=== PATIENT | female | born 1985 | race Caucasian/White ===

== ENCOUNTER 2016-11-10 13:42 | Emergency (ER) | payer OTHER ==
[~2016-11-10] VITALS: Ht 149.9 cm; Wt 52.3 kg
[~2016-11-10 13:42] MED LIST: ALBU1AER9 INH; BUTA1TAB70 PO; CETI10TA84 PO; SYMIN/8045 INH
[2016-11-10 13:46] VITALS: TEMP 36.9; Ht 149.9 cm; Wt 52.3 kg
[2016-11-10] MEDS ORDERED: DiphenhydrAMINE HCL 50 MG/ML VIAL IV STA (14:19)
[2016-11-10] MEDS ORDERED: KETOROLAC TROMETHAMINE 30 MG/ML VIAL IV STA (14:19)
[2016-11-10] MEDS ORDERED: PROCHLORPERAZINE INJ 5 MG in SYRINGE 4 ML IV STA (14:19)
[2016-11-10] MEDS ORDERED: PROCHLORPERAZINE 5 MG/ML 2 ML VIAL ONE (14:23)
[2016-11-10] MEDS ORDERED: SODIUM CHLORIDE 0.9% 1000ML 1,000 ML IV ONE (14:30)
--- NOTE | 2016-11-10 14:31 | EMERGENCY ROOM VISIT NOTE ---
History First contact with patient: 13:49 Chief Complaint: HEADACHE Stated Complaint: LEI, NUMBNESS FROM FACE DOWN RIGHT SIDE History of Present Illness The patient is a 31 year old female who presents to the Emergency Room with complaints of right facial, hand and foot tingling. She has a history of migraines She was at [facility] working when she had a sudden onset headache. The headache was quite typical of her usual migraine, described as a 6/10 throbbing pain in the back of her neck in the back of the neck and forehead. In addition to her headache, within 10 minutes of onset she developed blurred vision. She notes the visual disturbance is in her right eye where she has blurred vision in her temporal field only. She also says that she was seeing streaks of yellow light when at [facility], which has improved since coming here. She also notes that she had numbness/tingling in her right upper and lower extremity. She continues to having tingling in her hands and feet. She denies any limb weakness. She has not had any aphasias or dysphasias. She denies balance issues, vertigo, tinnitus or hearing changes. She has not had any facial weakness. She notes that this happened 5 years ago whereby she was evaluated. The difference at that time was that her symptoms were on the left. She was seen by Neurology at that time, who felt that her symptoms were related to migraine background. Imaging at that time, including CT and MRI were negative. She has Fioricet PRN, which she has not needed for a long time. She did not take it with the onset of her symptoms this morning. She denies fevers, chills or nightsweats. Review of Systems A 10 point review of systems was negative unless stated above. 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[employer]) Current/Historical Medications Scheduled PRN Albuterol Sulfate (Proair Respiclick), 1-2 PUFFS INH Q4 PRN for SOB/Wheezing Budesonide/Formoterol Fumarate (Symbicort 80/4.5 Inhaler), 2 PUFFS INH BID PRN for SOB/Wheezing Czclietynn-Qeitclwbikwet-Cxryy (Esgic), 1-2 TABS PO Q4H PRN for Headache Allergies Coded Allergies: Verapamil (Verified Allergy, Unknown, Swelling and rash, 11/10/16) Reported by PT Physical Exam Vital Signs Date Time Temp Pulse Resp B/P Pulse Ox O2 Delivery O2 Flow Rate FiO2 11/10/16 13:46 36.9 85 18 147/104 100 Room Air Pain Rating (0-10): 6 Physical Exam Constitutional: Vital signs as above were reviewed. Eyes: Pupils equal, round, and reactive to light. Extraocular muscles are intact. No proptosis. No photophobia. ENT: Mucous membranes are moist. Oropharynx is clear. No sinus tenderness. TMs are clear bilaterally. Cardiovascular: Heart with a regular rate and rhythm. Pulses are palpable and symmetric in all 4 extremities. No pedal edema appreciated. Respiratory: Lungs clear to auscultation bilaterally. No wheezes, rales, or rhonchi appreciated. No accessory muscle use. No retractions. No increased work of breathing. GI: Abdomen soft, nontender, nondistended. Normal active bowel sounds. No abdominal hernias appreciated. No rebound. No guarding. : No CVA tenderness appreciated. Musculoskeletal: No midline cervical or vertebral tenderness. No gross deformities. No bony tenderness. No calf swelling or tenderness. Integumentary: Warm, dry, no rashes appreciated. Neurological: Patient awake, alert, and oriented x 3. Motor 5 out of 5 strength bilateral upper and lower extremities. PERRL, normal EOMI, visual olivera intact; notes blurriness in temporal view of right eye but can see finger in field of view Hearing grossly normal No facial weakness; notes slightly reduced sensation to right side of face Normal muscles of mastication, normal swallow, uvula is in the midline, tongue is in the midline 5/5 strength in upper extremities; notes slight diminished sensation to the thenar eminence and index finger on the right; normal coordination 5/5 strength in lower extremities: notes slight diminished sensation to medial aspect of foot; normal coordination; patellar reflexes intact bilaterally Lymph: No cervical lymphadenopathy appreciated. Medical Decision & Procedures Medications Administered Medications (Trade) Dose Ordered Sig/Bassem Route Start Time Stop Time Status Last Admin Dose Admin Sodium Chloride (Nss 1000ml) 1,000 ml @ 999 mls/hr Q1H1M ONCE IV 11/10/16 14:30 11/10/16 15:30 DC 11/10/16 14:32 999 MLS/HR Ketorolac Tromethamine (Toradol Inj) 30 mg NOW STAT IV 11/10/16 14:19 11/10/16 14:21 DC 11/10/16 14:28 30 MG Diphenhydramine HCl 50 mg 50 mg NOW STAT IV 11/10/16 14:19 11/10/16 14:21 DC 11/10/16 14:28 50 MG Prochlorperazine Edisylate/Syringe (Compazine Inj/ Syringe) 5 ml @ 5 mls/min NOW STAT IV 11/10/16 14:19 11/10/16 14:21 DC 11/10/16 14:28 5 MLS/MIN ED Course 14:00 - Patient seen and evaluated 14:20 - Case discussed with Dr. Freddie Quan Orders placed for: 30 mg Toradol IV one; 50 mg Benadryl IV one; 5 mg Compazine IV one Order for 1 L NSS bolus 16:00 - Patient re-evaluated Patient feeling much better Discussed with patient with symptom improvement and improved headache, patient can be discharged home to continue recovery there; patient in agreement 16:10 - Discharge paperwork completed Patient discharged in stable condition. Medical Decision Patient presents with Migraine with neurological symptoms in the form of right sided facial and upper and lower extremity paresthesia. History was obtained, physical examination was performed and EMR was reviewed. Differential diagnosis to consider include tension headache, cluster headache, migraine headache, multiple sclerosis, CVA, TIA or intracranial hemorrhage. This was noted to have happened a few years ago on her opposite side. She was seen by neurology at that point, who felt it was migraine-related. Evaluating her in the ED, she had a grossly intact neurological examination. Her only symptoms were tingling in the fingers toes and mild numbness in the right side of her face. However, her symptoms improved spontaneously. We did not have an indication at this visit to perform additional imaging, especially given spontaneous resolution of mild symptoms. Our impression is that this is likely, again, a migraine variant. After treatment with Toradol, Compazine and Benadryl, she noted to feel significantly better. At this point, we felt she was stable to continue her recovery at home. She was advised to resume Fioricet PRN and see Neurology if migraine begin to recur more frequently. Otherwise, she was advised to see her PCP in 3-5 to ensure improvement in her symptoms. She was well at discharged and departed in stable condition. Impression Primary Impression: Migraine Departure Information Dispostion Home / Self-Care Condition GOOD Referrals Lester Dick M.D. (PCP) Patient Instructions My [facility] Additional Instructions You came to the ED for headache with symptoms of right-sided numbess and tingling. You noted that this happened to many years back and they resolved on their own. Hearing your story today in the ED, your symptoms are suggestive of a similar episode you had several years ago. As such we did not see the need to re-image your brain. We did a complete neurological examination on you which was completely normal except for some residual tingling which improved during your ED stay. Our impression is that your symptoms were a variant of your migraine and extremely unlikely to be a stroke. We treated you with a combination of Toradol, Benadryl and Compazine, a common combination used to acutely treat headache. Fortunately, this was very helpful for you. As you go home, if your symptoms return, you can try to take Fioricet as previously prescribed by your neurologist. If your headaches start to recur more frequently, it would be worthwhile for you to have a follow-up visit with your neurologist as it has been a long time since. Here are some additional instructions for your headaches: DO NOT drive, drink alcohol, operate machinery, or perform dangerous activities today. You were given medications in the ER that can affect your ability to safely function or operate a vehicle. Rest today in a quiet, peaceful, dark environment and get a full 8-10 hrs of sleep tonight. Avoid loud noises, smoke/smoking, alcohol, bright lights, stress, or physical exertion today to minimize the chance the headache may return. Continue current medications. Ibuprofen(Motrin, Advil) may be used for fever or pain. Use 600mg every six hours as needed. Take with food. Avoid using more than 2400mg in a 24 hour period. Do not use 2400mg per day for more than three consecutive days without physician direction. Prolonged inappropriate use can lead to stomach upset or ulcers. This is available over the counter and typically comes in 200mg tablets. (AND/OR) Acetaminophen(Tylenol) may be used for fever or pain. Use 1000mg every eight hours as needed. Avoid using more than 3000mg in a 24 hour period. This is available over the counter. Read all the package inserts or medication information paperwork provided. If you have any questions or concerns call your primary provider, pharmacist or the ER for assistance. Return to the ER for passing out, worsening headache, vision problems, neck stiffness/pain, fevers, vomiting, feeling lethargic, worsening of your condition, or as needed. Follow up with your primary physician in 2-3 days for a recheck of your current condition. It was a pleasure to be involved in your care and we wish you all the best.
[2016-11-10] MEDS ORDERED: ALBU18002 INH (15:05)
[2016-11-10 16:31] VITALS: BP 115/58; PULSE 76; O2SAT 98
--- NOTE | 2016-11-10 19:54 | EMERGENCY ROOM VISIT NOTE ---
ED Visit Note First contact with patient: 13:51 Resident Physician Supervision Note: Dr. Lindsya was resident physician during care of patient. I separately evaluated patient and did history and exam. I discussed the case with the resident and generally agree with the findings and plan. 31 yr old female arrives with headache and paresthesias. Multiple previous MRIs with previous Migraines and known diagnosis of complex migraines which she notes this is similar to. No neuro deficits though does note paresthesias which occurred with previous migraine. She does not have meningitis by examination nor does her history go with sah, dissection, nor other acute intracranial pathology. She is stable, looks well and not septic. With feeling better with above seems reasonable to discharge to home. Diagnosis: Headache/Complex Migraine Documented By: Kelechi Quan MD
== END 2016-11-10 16:54 | disposition home or self-care (01) ==
LOC: C.EDB 13:44
DX: G43.909 Migraine, unspecified, not intractable, without status migrainosus (principal); J45.909 Unspecified asthma, uncomplicated; Z90.49 Acquired absence of other specified parts of digestive tract; Z90.710 Acquired absence of both cervix and uterus; Z82.49 Family history of ischemic heart disease and other diseases of the circulatory system; Z82.0 Family history of epilepsy and other diseases of the nervous system

== ENCOUNTER 2020-04-25 07:14 | Inpatient (IN) ==
--- NOTE | 2020-04-25 07:48 | Emergency Department Note ---
History of Present Illness General Chief complaint: Cardiac Assessment Stated complaint: CHEST PAIN,LIGHTHEADED,HOT/SWEATS,SOB Time Seen by Provider: 04/25/20 07:22 History of Present Illness Maximum Pain Intensity: 7 35-year-old female who presents to the emergency department with complaint of left-sided chest discomfort, shortness of breath, sweatiness, hot flashes and lightheadedness. The patient reports that her symptoms started yesterday afternoon around 4:30 PM. She reports that the pain is intermittent in nature, lasting approximately 30 to 40 seconds at a time, and now becoming more constant. She denies any alleviating or aggravating factors for the pain. Patient reports that she is also had intermittent sharp stabbing pains in the left lower ribs that has been worked up by her PCP without any definitive etiologies for the pain. The patient reports a prior history of cardiomyopathy with QT prolongation. The patient is currently under the management of Dr. Galdamez. Her last echo was approximately 4 to [address] Galdamez had recommended a cardiac catheterization [id number]. The patient currently takes metoprolol 25 mg at bedtime as she reportedly has a variable heart rate. The patient reports a strong family history of cardiomyopathy, CHF and coronary artery disease. The patient reports that she is otherwise healthy. She denies hyperlipidemia or hypertension. She has a strong family history of thyroid disease, but has not had her thyroid checked in quite a while. The patient reports that her current pain radiates to the left shoulder and neck. He denies any pain radiating into the back or abdomen. The patient currently ra ayan her discomfort a 7 out of 10. Home Medications Home Medications Medication Instructions Recorded Confirmed Type albuterol sulfate 2 puff INHALATION Q6H PRN 04/25/20 04/25/20 History dicyclomine 10 mg PO TID PRN 04/25/20 04/25/20 History metoprolol succinate 25 mg PO HS 04/25/20 04/25/20 History Allergies Allergy/AdvReac Type Severity Reaction Status Date / Time verapamil Allergy Mild Swelling Verified 04/25/20 07:56 and rash Past Med/Surg History Medical History Abdominal pain Asthma inhaler prn Cardiomyopathy Dark stools GERD (gastroesophageal reflux disease) Hiatal hernia History of anesthesia reaction pt states that when she had an EGD in 2010 at the [facility] outpatient endo units, she "had an asthma attack while she was under anesthesia". Pt states she did not have any issues after the procedure was over and pt states that her asthma has greatly improved in the last 8 years since procedure was done. Migraine QT prolongation Surgical History History of section History of cholecystectomy History of esophagogastroduodenoscopy (EGD) History of exploratory laparotomy was having a lot of uterine cramping History of hysterectomy enlarged uterus removed at age of 27 History of wisdom tooth extraction Family History Grandfather (Maternal) Coronary heart disease Grandmother (Maternal) Coronary heart disease Brother Cardiomyopathy Age 38, hypertrophic cardiomyopathy Other Cancer No family history of adverse response to anesthesia Social History Preferred Language: Georgian Communication Ability: Effective Instrument And Controls Technician Required: No Beliefs That Will Affect Care: None Current Living Situation: Spouse and Family Current Living Situation Comment: Lives with and kids Other Information That Helps Us Care for You: No Feels Safe at Home: Yes Safety Concerns: Feels Safe At This Time Smoking Status: Never smoker Second Hand Exposure: No ; Hx Alcohol Use: Yes (2-3 beers daily) Alcohol type: beer Hx Substance Use: No Review of Systems 10 system review was performed and was negative except for pertinent positives and negatives as indicated in history of present illness Physical Exam Vital Signs Vital Signs - 24 hr 04/25/20 07:18 04/25/20 08:38 04/25/20 09:30 Temperature 36.8 C Temperature Source Oral Pulse Rate 74 Pulse Rate [Apical] 67 69 Respiratory Rate 18 16 16 Respiratory Effort / Characteristics Non-Labored Respiratory Depth Normal Blood Pressure 139/84 Blood Pressure [Right Arm] 118/80 119/89 Blood Pressure Mean 102 Blood Pressure Mean [Right Arm] 92 99 Pulse Oximetry 98 97 Oxygen Delivery Method Room Air Room Air Sepsis Recent Fever Within 48 Hours No Sepsis New/Unexplained Change in Mental Status No Sepsis Action Taken by Nursing No Action Required 04/25/20 10:30 Temperature Temperature Source Pulse Rate Pulse Rate [Apical] 66 Respiratory Rate 16 Respiratory Effort / Characteristics Respiratory Depth Blood Pressure Blood Pressure [Right Arm] 149/97 H Blood Pressure Mean Blood Pressure Mean [Right Arm] 114 Pulse Oximetry Oxygen Delivery Method Sepsis Recent Fever Within 48 Hours Sepsis New/Unexplained Change in Mental Status Sepsis Action Taken by Nursing CONSTITUTIONAL: Healthy and well nourished. Patient does not appear in any acute distress. HEENT: Normocephalic, atraumatic. No scleral icterus or conjunctival injection/pallor. No facial edema. NECK: Full active range of motion without discomfort. LYMPHATICS: No cervical chain adenopathy. RESPIRATORY: Clear to auscultation bilaterally with no wheezing, crackles, rhonchi or stridor. Deep breathing does not worsen discomfort. CARDIOVASCULAR: Regular rate and rhythm with no murmurs, rubs or gallops. GASTROINTESTINAL: Bowel sounds present in all quadrants. Soft and nontender to palpation without hepatosplenomegaly or epigastric tenderness to palpation. Negative CVA tenderness. MUSCULOSKELETAL: Patient has mild tenderness to palpation across the left anterior chest wall. No worsening pain with range of motion of the left shoulder. INTEGUMENTARY: No rash or other significant dermatologic conditions noted. HEMATOLOGIC: No ecchymosis or petechiae. PSYCHIATRIC: Positive affect. NEUROLOGIC: No focal neurologic deficits noted. Course Course Patient history and physical exam were performed. Nurse's notes were reviewed. Vital signs were reviewed to show a mildly elevated blood pressure 139/84, otherwise he is not tachycardic or hypoxic. IV access was established, and labs were drawn. The patient initially refused any analgesics or antiemetics. Review of labs did not show any significant abnormalities, including CBC, CMP, lipase and TSH. Urinalysis was also unremarkable. Troponin and d-dimer were also normal. Portable chest x-ray was normal. Initial ECG showed small is chemic changes in leads V1 through 3. The patient had persistent pain, rating her discomfort a 7 out of 10. At this point, the case was discussed with Dr. Mena, ED attending physician who agrees with cardiology consultation. I did attempt to get a hold of Dr. Galdamez, however was unsuccessful. I then discussed the case with Dr. Shepherd, allergist immunologist on-call, who reviewed patient history and ED findings, and recommended another repeat troponin and ECG. If these are normal, he recommended a stress echo be performed. The patient second ECG and troponin were in fact normal. The patient was then sent for a stress echo, which the patient failed. Dr. Shepherd did contact me via telephone, and indicated that he is recommending a heart catheterization as soon as their procedure table is available. He has requested hospitalist admission. The case was then discussed with the [facility] hospitalist service. Please see their dictations for further treatment and final disposition. Administered Medications Discontinued Medications Aspirin (Aspirin) 324 mg PO NOW STA Stop: 04/25/20 13:41 Last Admin: 04/25/20 13:57 Dose: 324 mg Documented by: [id number] Aspirin (Aspirin) Confirm Administered Dose 324 mg .ROUTE .STK-MED ONE Stop: 04/25/20 13:48 Last Admin: 04/25/20 14:12 Dose: Not Given Documented by: [id number] Fentanyl Citrate (Fentanyl Citrate) Confirm Administered Dose 100 mcg .ROUTE .STK-MED ONE Stop: 04/25/20 15:41 Last Increment: 04/25/20 16:07 Dose: 12.5 mcg Documented by: [id number] Heparin Sodium (Porcine) (Heparin Iv Bolus (Match Up Worker Use Only)) Confirm Administ ered Dose 10,000 units .ROUTE .STK-MED ONE Stop: 04/25/20 15:43 Last Admin: 04/25/20 16:07 Dose: 5,000 units Documented by: [id number] Heparin Sodium/Sodium Chloride (Heparin/Nss 1000 Unit/500ml Flush Bag) Confirm Administered Dose 3,000 units IV .STK-MED ONE Stop: 04/25/20 15:41 Last Admin: 04/25/20 16:07 Dose: 3,000 units Documented by: [id number] Ketorolac Tromethamine (Toradol) 30 mg IV NOW STA Stop: 04/25/20 10:13 Last Admin: 04/25/20 10:32 Dose: 30 mg Documented by: [id number] Midazolam HCl (Versed) Confirm Administered Dose 2 mg .ROUTE .STK-MED ONE Stop: 04/25/20 15:41 Last Admin: 04/25/20 16:07 Dose: 2 mg Documented by: [id number] Nitroglycerin/Dextrose (Nitroglycerin/D5w 100 Mcg/Ml 20ml Syringe) Confirm Administered Dose 2,000 mcg .ROUTE .STK-MED ONE Stop: 04/25/20 15:41 Last Admin: 04/25/20 16:07 Dose: 2,000 mcg Documented by: [id number] Medical Decision Making Medical Records Attestation: I reviewed the patient's medical records. Home Medications Current Medication List: was personally reviewed by me Laboratory Data Attestation: I reviewed the patient's lab results. Result diagrams: 04/25/20 07:27 04/25/20 07:27 Lab Results 04/25/20 04/25/20 04/25/20 Range/Units 07:27 07: 07:27 WBC 8.65 (4.8-10.8) K/uL RBC 4.36 (4.2-5.4) M/uL Hgb 13.8 (12.0-16.0) g/dL Hct 41.1 (37-47) % MCV 94.3 (80-100) fL MCH 31.7 (25-34) pg MCHC 33.6 (32-36) g/dL RDW Std Deviation 46.6 H (36.4-46.3) fL RDW Coeff of Ricky 13.6 (11.5-14.5) % Plt Count 291 (130-400) K/uL MPV 9.9 (7.4-10.4) fL Immature Gran % (Auto) 0.5 % Neut % (Auto) 60.7 % Lymph % (Auto) 29.2 % [place] % (Auto) 6.0 % Eos % (Auto) 2.9 % Baso % (Auto) 0.7 % Neut # (Auto) 5.25 (1.4-6.5) K/uL Lymph # (Auto) 2.53 (1.2-3.4) K/uL [place] # (Auto) 0.52 (0.11-0.59) K/uL Eos # (Auto) 0.25 (0-0.5) K/uL Baso # (Auto) 0.06 (0-0.2) K/uL Immature Gran # (Auto) 0.04 H (0.00-0.02) K/uL PT 10.1 (9.0-12.0) Seconds INR 1.0 (0.9-1.1) APTT 26.9 (21.0-31.0) Seconds PTT Ratio 1.0 D-Dimer 240 (0-500) ug/L FEU Sodium 138 (136-145) mmol/L Potassium 4.2 (3.5-5.1) mmol/L Chloride 107 (98-107) mmol/L Carbon Dioxide 27 (21-32) mmol/L Anion Gap 5.0 (3-11) BUN 9 (7-18) mg/dl Creatinine 0.89 (0.6-1.2) mg/dl Est Cr Clr Drug Dosing 73.1 ml/min Est GFR ( Amer) 96.0 Est GFR (Non-Af Amer) 82.8 BUN/Creatinine Ratio 9.8 L (10-20) Glucose 93 (70-99) mg/dl Calcium 8.2 L (8.5-10.1) mg/dl Total Bilirubin 0.8 (0.2-1) mg/dl AST 16 (15-37) U/L ALT 24 (12-78) U/L Alkaline Phosphatase 48 (45-117) U/L Total Creatine Kinase 180 (26-192) U/L CK-MB (CK-2) < 1.0 (0.5-3.6) ng/ml CK/CKMB % Calc TNP Troponin I < 0.015 (0-0.045) ng/ml Total Protein 7.4 (6.4-8.2) gm/dl Albumin 3.6 (3.4-5.0) gm/dl Globulin 3.8 (2.5-4.0) gm/dl Albumin/Globulin Ratio 1.0 (0.9-2) Lipase 144 (73-393) U/L TSH 2.190 (0.300-4.500) uIu/ml Urine Color Urine Appearance (Clear) Urine pH (4.5-7.5) Ur Specific [place] (1.000-1.030) Urine Protein (Negative) Urine Glucose (UA) (Negative) Urine Ketones (Negative) Urine Blood (Negative) Urine Nitrite (Negative) Urine Bilirubin (Negative) Urine Urobilinogen (Negative) Ur Leukocyte Esterase (Negative) Urine Opiates Screen (Neg) Ur Methadone, Qual (Neg) Urine Barbiturates (Neg) Ur Phencyclidine (PCP) (Neg) U Amphetamin/Meth Scrn (Neg) MDMA (Ecstasy) Screen (Neg) U Benzodiazepines Scrn (Neg) Ur Cocaine Metabolite (Neg) U Marijuana (THC) Screen (Neg) 04/25/20 04/25/20 04/25/20 Range/Units 08:30 08:30 10:30 WBC (4.8-10.8) K/uL RBC (4.2-5.4) M/uL Hgb (12.0-16.0) g/dL Hct (37-47) % MCV (80-100) fL MCH (25-34) pg MCHC (32-36) g/dL RDW Std Deviation (36.4-46.3) fL RDW Coeff of Ricky (11.5-14.5) % Plt Count (130-400) K/uL MPV (7.4-10.4) fL Immature Gran % (Auto) % Neut % (Auto) % Lymph % (Auto) % [place] % (Auto) % Eos % (Auto) % Baso % (Auto) % Neut # (Auto) (1.4-6.5) K/uL Lymph # (Auto) (1.2-3.4) K/uL [place] # (Auto) (0.11-0.59) K/uL Eos # (Auto) (0-0.5) K/uL Baso # (Auto) (0-0.2) K/uL Immature Gran # (Auto) (0.00-0.02) K/uL PT (9.0-12.0) Seconds INR (0.9-1.1) APTT (21.0-31.0) Seconds PTT Ratio D-Dimer (0-500) ug/L FEU Sodium (136-145) mmol/L Potassium (3.5-5.1) mmol/L Chloride (98-107) mmol/L Carbon Dioxide (21-32) mmol/L Anion Gap (3-11) BUN (7-18) mg/dl Creatinine (0.6-1.2) mg/dl Est Cr Clr Drug Dosing ml/min Est GFR ( Amer) Est GFR (Non-Af Amer) BUN/Creatinine Ratio (10-20) Glucose (70-99) mg/dl Calcium (8.5-10.1) mg/dl Total Bilirubin (0.2-1) mg/dl AST (15-37) U/L ALT (12-78) U/L Alkaline Phosphatase (45-117) U/L Total Creatine Kinase (26-192) U/L CK-MB (CK-2) (0.5-3.6) ng/ml CK/CKMB % Calc Troponin I < 0.015 (0-0.045) ng/ml Total Protein (6.4-8.2) gm/dl Albumin (3.4-5.0) gm/dl Globulin (2.5-4.0) gm/dl Albumin/Globulin Ratio (0.9-2) Lipase (73-393) U/L TSH (0.300-4.500) uIu/ml Urine Color [place] Urine Appearance Clear (Clear) Urine pH 5.0 (4.5-7.5) Ur Specific Donald 1.010 (1.000-1.030) Urine Protein Negative (Negative) Urine Glucose (UA) Negative (Negative) Urine Ketones Negative (Negative) Urine Blood Negative (Negative) Urine Nitrite Negative (Negative) Urine Bilirubin Negative (Negative) Urine Urobilinogen Negative (Negative) Ur Leukocyte Esterase Negative (Negative) Urine Opiates Screen Neg (Neg) Ur Methadone, Qual Neg (Neg) Urine Barbiturates Neg (Neg) Ur Phencyclidine (PCP) Neg (Neg) U Amphetamin/Meth Scrn Neg (Neg) MDMA (Ecstasy) Screen Neg (Neg) U Benzodiazepines Scrn Neg (Neg) Ur Cocaine Metabolite Neg (Neg) U Marijuana (THC) Screen Neg (Neg) Imaging Data Attestation: I personally reviewed and interpreted this imaging study as follows: My Impression: My interpretation of reportable chest x-ray does not show any consolidations, pneumothorax or cardiac prominence. Radiologist report was also reviewed. Radiologist's Impression: XR chest 1V portable CLINICAL HISTORY: Atypical chest pain COMPARISON STUDY: November 28, 2014 FINDINGS: The cardiac and mediastinal contours are normal. There is no evidence of focal pulmonary consolidation. There is no evidence of failure. No pleural effusions are visualized.[There is been interval resolution of the previously identified left lung airspace opacities IMPRESSION: No active disease in the chest. ECG Data Attestation: I personally reviewed and interpreted this ECG as follows: Indication: + chest pain and + SOB/dyspnea Rate (beats per minute): 70 Rhythm: + normal sinus ECG Intervals/blocks: + Normal QT ECG [place]: + Normal ECG ST segments: + Normal ST segments Comparison ECG Date: from (11/28/14) Change: no significant change Additional Comments: Repeat ECG at approximately 4 hours showed persistent normal sinus rhythm and inverted T waves in V1 through 3, with no other other acute changes. Blood Pressure Blood Pressure Findings: Normal blood pressure MDM Narrative Cardiac monitoring: An order was placed for continuous cardiac monitoring. The monitor shows a rate of 70 bpm with normal sinus rhythm. monitoring engineer history was reviewed throughout the evaluation, and no dysrhythmias were noted. Patient presents with complaint of unstable anginal type symptoms, as well as possible ischemic changes in anterior leads. Patient did have serial ECGs and troponins in the emergency department that were normal. D-dimer was also not elevated. The patient's stress echo was abnormal, therefore cardiology will be performing a heart catheterization. Patient does have a strong family history of cardiomyopathy and coronary artery disease. Further imaging today is not suggestive of pneumothorax or pneumonia. Musculoskeletal etiology was also considered as some of her pain is reproducible to palpation of the left chest wall. Impression & Plan Chest pain, Cardiomyopathy, Abnormal stress echocardiogram Discharge Plan Visit Data *Final* Discharge Date/Time: 04/25/20 14:10 Chief Complaint: Cardiac Assessment Stated Complaint: CHEST PAIN,LIGHTHEADED,HOT/SWEATS,SOB ED Provider: Aniceto Mena ED Midlevel Provider: Jerome Jimenez Discharge Problem: Chest pain, Cardiomyopathy, Abnormal stress echocardiogram Patient Disposition: Admitted As Inpatient Discharge Instructions Interventions: ED Discharge Assessment Last Done: 04/25/20 14:10 Discharge Problem: Chest pain Qualifiers: Chest pain type: unspecified Qualified Code(s): R07.9 - Chest pain, unspecified Cardiomyopathy Qualifiers: Cardiomyopathy type: unspecified Qualified Code(s): I42.9 - Cardiomyopathy, unspecified
--- NOTE | 2020-04-25 08:03 | XRay Report ---
XR chest 1V portable CLINICAL HISTORY: Atypical chest pain COMPARISON STUDY: November 28, 2014 FINDINGS: The cardiac and mediastinal contours are normal. There is no evidence of focal pulmonary co nsolidation. There is no evidence of failure. No pleural effusions are visualized.[There is been inte rval resolution of the previously identified left lung airspace opacities IMPRESSION: No active disease in the chest. ACT 112: Negative or not required by law. Electronically signed by: Musa Stauffer M.D. 04/25/2020 8:02 AM
[2020-04-25 08:04] LABS: Basophils # (auto) 0.06 K/uL (0-0.2); Basophils % (auto) 0.7 %; Eosinophils # (auto) 0.25 K/uL (0-0.5); Eosinophils % (auto) 2.9 %; Hematocrit (blood only) 41.1 % (37-47); Hemoglobin 13.8 g/dL (12.0-16.0); Immature Granulocytes # (auto) 0.04 K/uL (0.00-0.02); Immature Granulocytes % (auto) 0.5 %; Lymphocytes # (auto) 2.53 K/uL (1.2-3.4); Lymphocytes % (auto) 29.2 %; Mean Corpuscular Hemoglobin 31.7 pg (25-34); Mean Corpuscular Hgb Conc 33.6 g/dL (32-36); Mean Corpuscular Volume 94.3 fL (80-100); Mean Platelet Volume 9.9 fL (7.4-10.4); Monocytes # (auto) 0.52 K/uL (0.11-0.59); Neutrophils # (auto) 5.25 K/uL (1.4-6.5); Neutrophils % (auto) 60.7 %; Platelet Count 291 K/uL (130-400); RDW Coefficient of Variation 13.6 % (11.5-14.5); RDW Standard Deviation 46.6 fL (36.4-46.3); Red Blood Count 4.36 M/uL (4.2-5.4); White Blood Count 8.65 K/uL (4.8-10.8)
[2020-04-25 08:10] LABS: Alanine Aminotransferase 24 U/L (12-78); Albumin Level 3.6 gm/dl (3.4-5.0); Aspartate Aminotransferase 16 U/L (15-37); BUN Creatinine Ratio 9.8 (10-20); Blood Urea Nitrogen 9 mg/dl (7-18); Calcium 8.2 mg/dl (8.5-10.1); Carbon Dioxide 27 mmol/L (21-32); Chloride 107 mmol/L (98-107); Creatinine Clr Calc Pharmacy 73.1 ml/min; Est GFR (Non-African American) 82.8; Glucose 93 mg/dl (70-99); Lipase 144 U/L (73-393); Potassium 4.2 mmol/L (3.5-5.1); Sodium 138 mmol/L (136-145)
[2020-04-25 08:20] LABS: Alkaline Phosphatase 48 U/L (45-117); Bilirubin,Total 0.8 mg/dl (0.2-1); Creatine Kinase 180 U/L (26-192); Creatine Kinase MB < 1.0 ng/ml (0.5-3.6); Globulin 3.8 gm/dl (2.5-4.0); Total Protein 7.4 gm/dl (6.4-8.2); Troponin I < 0.015 ng/ml (0-0.045)
[2020-04-25 08:29] LABS: D Dimer 240 ug/L FEU (0-500); Partial Thromboplastin Time 26.9 Seconds (21.0-31.0); Prothrombin Time 10.1 Seconds (9.0-12.0)
[2020-04-25 09:00] LABS: Appearance Urine Clear (Clear); Bilirubin Urine Negative (Negative); Blood Urine Negative (Negative); Color Urine Orange; Glucose Urine UA Negative (Negative); Ketones Urine Negative (Negative); Leukocyte Esterase Urine Negative (Negative); Nitrite Urine Negative (Negative); Protein Urine Negative (Negative); Urobilinogen Urine Negative (Negative)
[2020-04-25 09:26] LABS: Amphetamines+Metham, Urine Neg (Neg); Barbiturates, Urine Neg (Neg); Benzodiazepine, Urine Neg (Neg); Cocaine, Urine Neg (Neg); MDMA (Ecstacy), Urine Neg (Neg); Methadone, Urine Neg (Neg); Opiate, Urine Neg (Neg); Phencyclidine, Urine Neg (Neg)
[2020-04-25] MEDS ORDERED: KETOROLAC 30 MG/ML VIAL IV STA (10:12)
--- NOTE | 2020-04-25 12:56 | Cardiology Consultation ---
Date of Consultation April 25, 2020 Assessment & Plan (1) Chest pain: (2) Abnormal stress echocardiogram: (3) Rate-related bundle branch block: (4) Cardiomyopathy: (5) QT prolongation: I had a long discussion with the patient regarding the the result of her repeat stress test demonstrating rate related interventricular conduction delay, abnormal septal wall motion, and unchanged LV function with exercise. Further evaluation is warranted. Risk versus benefit of cardiac catheterization discussed at length. Patient agreeable. She will be admitted for inpatient observation. We will proceed with cardiac catheterization this afternoon. History of Present Illness Reason for Consultation: Chest pain, abnormal stress echo History of Present Illness 35-year-old female presented emergency department with chest pain. Patient describes chest discomfort over the past 18 months. She was evaluated in the cardiology clinic at [facility] earlier this year. An exercise stress echo was performed in December which was equivocal for inducible ischemia. Baseline echocardiogram demonstrating mild systolic dysfunction with ejection fraction of 45%. Also carries a history of prolonged QT. Patient came to the ER today due to persistent left-sided chest pain. Discomfort somewhat reproducible with palpation. Cardiac enzymes negative x2 sets. Exercise stress echocardiography was performed demonstrating mild baseline LV systolic dysfunction. A rate related interventricular conduction delay noted during exercise with associated ST changes. Stress images demonstrated septal wall motion abnormality consistent with conduction delay, however, ischemia cannot be excluded. Left ventricular ejection fraction did not augment with exercise. Normal blood pressure response to activity. Chest discomfort improved with rest. Allergies Allergy/AdvReac Type Severity Reaction Status Date / Time verapamil Allergy Mild Swelling Verified 04/25/20 07:56 and rash Home Medications Home Medications Medication Instructions Recorded Confirmed Type albuterol sulfate 2 puff INHALATION Q6H PRN 04/25/20 04/25/20 History dicyclomine 10 mg PO TID PRN 04/25/20 04/25/20 History metoprolol succinate 25 mg PO HS 04/25/20 04/25/20 History Patient History Medical History Abdominal pain Asthma inhaler prn Cardiomyopathy Dark stools GERD (gastroesophageal reflux disease) Hiatal hernia History of anesthesia reaction pt states that when she had an EGD in 2010 at the [facility] endo units, she "had an asthma attack while she was under anesthesia". Pt states she did not have any issues after the procedure was over and pt states that her asthma has greatly improved in the last 8 years since procedure was done. Migraine QT prolongation Surgical History History of section History of cholecystectomy History of esophagogastroduodenoscopy (EGD) History of exploratory laparotomy was having a lot of uterine cramping History of hysterectomy enlarged uterus removed at age of 27 History of wisdom tooth extraction Family History Grandfather (Maternal) Coronary heart disease Grandmother (Maternal) Coronary heart disease Brother Cardiomyopathy Age 38, hypertrophic cardiomyopathy Other Cancer No family history of adverse response to anesthesia Social History Preferred Language: Hong Konger Communication Ability: Effective Brick Off Bearer Required: No Beliefs That Will Affect Care: None Current Living Situation: Spouse and Family Current Living Situation Comment: Lives with and kids Other Information That Helps Us Care for You: No Feels Safe at Home: Yes Safety Concerns: Feels Safe At This Time Smoking Status: Never smoker Second Hand Exposure: No ; Hx Alcohol Use: Yes (2-3 beers daily) Alcohol type: beer Hx Substance Use: No Review of Systems Review of Systems: All systems reviewed & are unremarkable except as noted in HPI & below Physical Exam Constitutional: well developed, well nourished and + obese; no acute distress and not ill appearing Respiratory: normal respiratory effort, lungs clear to auscultation Auscultation: no crackles, no rales, no rhonchi and no wheezes Cardiovascular: Rate/Rhythm: regular rate and regular rhythm Heart Sounds: normal S1 and normal S2; no gallop, no murmur and no cardiac rub Palpation: normal PMI Vessels: femoral pulses present and radial pulses present; no JVD and no carotid bruit Extremities: no edema Gastrointestinal (Abdomen): Inspection/Auscultation: abdomen normal to inspection and normal bowel sounds; abdomen not distended Percussion/Palpation: abdomen soft; abdomen nontender, no guarding and abdomen not rigid Musculoskeletal: no cyanosis or clubbing, extremities motor strength 5/5 Skin: no rashes, warm and dry Neurologic: moves all extremities; no focal motor deficits Speech / Cognition: normal speech Motor/Sensory: no tremor Psychiatric: A+Ox3, euthymic affect Results & Data ([facility]) Vital Signs (Past 12 Hours) Vital Signs Temp Pulse Pulse Resp BP BP Pulse Ox 04/25/20 10:30 66 16 149/97 H 04/25/20 09:30 69 16 119/89 04/25/20 08:38 67 16 118/80 97 04/25/20 07:18 36.8 C 74 18 139/84 98 (1) Chest pain Chest pain type: precordial pain Qualified Code(s): R07.2 - Precordial pain (2) Cardiomyopathy Cardiomyopathy type: unspecified Qualified Code(s): I42.9 - Cardiomyopathy, unspecified
--- NOTE | 2020-04-25 13:38 | History & Physical Report ---
Date of Service April 25, 2020 Assessment & Plan (1) Chest pain: (2) Abnormal stress echocardiogram: Pt is 35 y/o F with PMH cardiomyopathy with EF: 45%, prolonged QTc, chronic diarrhea, asthma presented to ER with c/o intermittent squeezing sensation to left side of chest that lasts approx 30-40 seconds that began yesterday, worse this morning. In ER afebrile, P: 74, R: 18, BP: 139/84, 98% on RA. No leukocytosis, negative troponin x 2, negative d-dimer, EKG without acute ST elevation. CXR: No acute changes R/O ACS -In ER given Toradol with limited relief of CP -Monitor Vitals -Repeat EKG in am -Will trend troponin -dose aspirin -lipid panel in am -Continue metoprolol -Nitro prn CP -NPO for now -Cardiology consult, Dr Shepherd saw pt in ER and performed stress echo -Stress echo: equivocal for inducible ischemia, had below average exercise capacity, incomplete LBBB, lateral and inferior ST depression, dyssynergistic septal wall motion possibly be related to interventricular dysfunction delay, however ischemic cannot be excluded -Planned to take pt for cardiac cath this afternoon (3) Cardiomyopathy: H/O Cardiomyopathy. Baseline EF: 45% -Continue metoprolol -Cardiology consult (4) Asthma: No acute exacerbation -Albuterol prn DVT Prophylaxis -SCDs Full Code Follows with Dr Carmen for routine care Pt was seen and care coordinated with Dr Damon. See addendum History of Present Illness Chief Complaint: CP Primary Care Provider: Kae Carmen, DO Pt is 35 y/o F with PMH cardiomyopathy with EF: 45%, prolonged QTc, chronic diarrhea, asthma presented to ER with c/o CP. Pt states yesterday around 4:30PM was sitting on couch when started with intermittent squeezing sensation to left side of chest that lasted approx 30-40 seconds. States this morning woke up around 4:00AM with increased squeezing pain to left chest that was more frequent. Later in morning symptoms associated with SOB, dizziness, nausea without vomiting. Pt reports LEI with CP. Intermittent chest pains have continued and now only with dizziness with sitting up or standing. Chronic intermittent loose stools, last BM yesterday was loose. Ate breakfast around 5:00AM today. Denies fever/chills, syncope, vision changes, neck pain, orthopnea, pa lpitations, cough, sore throat, choking, otalgia, rhinorrhea, abdominal pain, paresthesias, weakness, extremity weakness, extremity edema, rashes, urinary symptoms, recent travel, ill contacts. H/O Stress test in 12/2019 was equivocal for inducible ischemia. In ER initial EKG without acute ST elevation, negative troponin x 2, negative D- Dimer. Dr Shepherd performed stress test with reported septal wall motion abnormality and cardiac cath is recommended. Pt to be admitted for further workup and observation. Allergies Allergy/AdvReac Type Severity Reaction Status Date / Time verapamil Allergy Mild Swelling Verified 04/25/20 07:56 and rash Home Medications Home Medications Medication Instructions Recorded Confirmed Type albuterol sulfate 2 puff INHALATION Q6H PRN 04/25/20 04/25/20 History dicyclomine 10 mg PO TID PRN 04/25/20 04/25/20 History metoprolol succinate 25 mg PO HS 04/25/20 04/25/20 History Past Med/Surg History Medical History Abdominal pain Asthma inhaler prn Cardiomyopathy Dark stools GERD (gastroesophageal reflux disease) Hiatal hernia History of anesthesia reaction pt states that when she had an EGD in 2010 at the [facility] outpatient endo units, she "had an asthma attack while she was under anesthesia". Pt states she did not have any issues after the procedure was over and pt states that her asthma has greatly improved in the last 8 years since procedure was done. Migraine QT prolongation Surgical History History of section History of cholecystectomy History of esophagogastroduodenoscopy (EGD) History of exploratory laparotomy was having a lot of uterine cramping History of hysterectomy enlarged uterus removed at age of 27 History of wisdom tooth extraction Family History Grandfather (Maternal) Coronary heart disease Grandmother (Maternal) Coronary heart disease Brother Cardiomyopathy Age 38, hypertrophic cardiomyopathy Other Cancer No family history of adverse response to anesthesia Social History Preferred Language: Faroese Communication Ability: Effective Veneer Drier Feeder Required: No Beliefs That Will Affect Care: None Current Living Situation: Spouse and Family Current Living Situation Comment: Lives with and kids Other Information That Helps Us Care for You: No Feels Safe at Home: Yes Safety Concerns: Feels Safe At This Time Smoking Status: Never smoker Second Hand Exposure: No ; Hx Alcohol Use: Yes (2-3 beers daily) Alcohol type: beer Hx Substance Use: No Review of Systems Review of Systems: All systems reviewed & are unremarkable except as noted in HPI & below Physical Exam Physical Exam: General: no distress, WDWN Head: normocephalic, atraumatic Eyes: PERRL, EOM's intact, conjunctiva non-injected, anicteric ENT: normal inspection external ears, nose, mucous membranes moist Neck: supple, trachea midline Lungs: clear, no respiratory distress, no wheezing/rhonchi/rales CV: RRR, no murmur, no pretibial edema Abd: normal BS, protuberant, soft, non-tender Ext: no cyanosis, no calf tenderness Neuro: A&O x 3, no focal deficits noted, normal affect Skin: warm, dry Results & Data Results & Data ([facility]) Vital Signs (Past 12 Hours) Vital Signs Temp Pulse Pulse Resp BP BP Pulse Ox 04/25/20 10:30 66 16 149/97 H 04/25/20 09:30 69 16 119/89 04/25/20 08:38 67 16 118/80 97 04/25/20 07:18 36.8 C 74 18 139/84 98 Laboratory Results Short CBC 04/25/20 04/25/20 04/25/20 Range/Units 07:27 07:27 10:30 WBC 8.65 (4.8-10.8) K/uL Hgb 13.8 (12.0-16.0) g/dL Hct 41.1 (37-47) % Plt Count 291 (130-400) K/uL Troponin I < 0.015 < 0.015 (0-0.045) ng/ml BMP 04/25/20 07:27 Sodium 138 Potassium 4.2 Chloride 107 Carbon Dioxide 27 BUN 9 Creatinine 0.89 Glucose 93 Calcium 8.2 L Cardiac Enzymes 04/25/20 04/25/20 Range/Units 07:27 10:30 Total Creatine Kinase 180 (26-192) U/L CK-MB (CK-2) < 1.0 (0.5-3.6) ng/ml Troponin I < 0.015 < 0.015 (0-0.045) ng/ml Liver Function 04/25/20 Range/Units 07:27 Total Bilirubin 0.8 (0.2-1) mg/dl AST 16 (15-37) U/L ALT 24 (12-78) U/L Alkaline Phosphatase 48 (45-117) U/L Albumin 3.6 (3.4-5.0) gm/dl Urine 04/25/20 Range/Units 08:30 Urine Color [place] Urine Appearance Clear (Clear) Urine pH 5.0 (4.5-7.5) Ur Specific [place] 1.010 (1.000-1.030) Urine Protein Negative (Negative) Urine Glucose (UA) Negative (Negative) Diagnostic Findings CXR: IMPRESSION: No active disease in the chest. ECG Rate (beats per minute): 70 Rhythm: sinus rhythm Findings: + Q waves (Anterior) Code Status & VTE Plan VTE Prophylaxis Plan VTE Prophylaxis will be ordered: Yes Supervising Physician Co-Signing Physician Notes I have seen and examined the patient and have discussed the case with the provider above. I agree with the assessment and plan as stated with the following exceptions. 35 yo F with prolonged QT who was placed on Toprol 6 months ago reports approx 6-12 months of chest pains and one year of decreased exercise tolerance. She presented to the hospital for a cardiac catheterization after an abnormal stress test today, which also provoked symptoms of her chest pain. Coronaries were clear and EF was slightly reduced at 45-50%. She is euvolemic on exam and not in acute heart failure. Lungs are clear to auscultation. Cardiac exam is WNL including normal S1 and S2 without murmurs, gallops or rubs. No peripheral edema or JVD is present. There is no conversational dyspnea. Skin is warm and dry and she is mentating normally with no gross focal neurologic deficits. Notably her brother has HOCM and she reports he is "dying of heart failure" in [place]. Other members of her family had heart disease but she is not sure about heart failure. Workup reveals a normal TSH, negative urine drug screen and she doesn't drink significant amounts of alcohol or smoke. She has no other comorbidities and is otherwise healthy. Cardiology for ultimate plan and they have added low dose ACEI. Likely DC to home in am pending further cardiology recommendations. Monitor on telemetry overnight to ensure no arrhythmias present as a cause of cardiomyopathy. DO Nelson (1) Chest pain Chest pain type: precordial pain Qualified Code(s): R07.2 - Precordial pain (2) Cardiomyopathy Cardiomyopathy type: unspecified Qualified Code(s): I42.9 - Cardiomyopathy, unspecified
[2020-04-25] MEDS ORDERED: ASPIRIN CHEW 324 MG PO STA (13:40)
[2020-04-25] MEDS ORDERED: ASPIRIN CHEW 324 MG ONE (13:47)
--- NOTE | 2020-04-25 14:42 | Pre Anesthesia Assessment ---
Date of Service April 25, 2020 Pre Sedation Assessment Vital Signs Temp Pulse Resp BP BP Pulse Ox Pulse Ox 04/26/20 07:44 36.7 C 60 18 125/87 100 04/26/20 03:34 36.9 C 84 17 118/74 98 04/26/20 00:00 36.8 C 77 18 105/71 98 04/25/20 19:07 36.8 C 80 18 113/80 98 04/25/20 18:15 99 H 16 134/84 98 04/25/20 17:36 89 16 117/86 97 04/25/20 17:06 81 16 130/91 98 04/25/20 16:36 36.6 C 77 16 111/78 95 04/25/20 16:29 72 16 105/68 98 04/25/20 16:15 74 16 106/73 99 04/25/20 14:55 36.7 C 74 16 130/89 99 99 04/25/20 14:00 75 18 123/76 98 04/25/20 10:30 66 16 149/97 H Cardiovascular RRR, no murmur, no edema + radial pulses present; no JVD and no carotid bruit Respiratory normal respiratory effort, lungs clear to auscultation Pre-Sedation Airway Assessment Smoking Status: Never smoker Hx Sleep Apnea: No Hx Difficult Intubation: No Short, Thick Neck: Yes ASA: ASA3 Procedure Planning Contraindications for Sedation: none Current Medications Reviewed: Yes Notes The planned sedation has been discussed with the patient. Informed Consent was obtained. I have identified the patient, determined the appropriateness of sedation and have assessed the patient immediately prior to the procedure. All medicine(s) and interventions are by my order.
[2020-04-25] MEDS ORDERED: NITROGLYCERIN SL 0.4 MG/TAB TAB SL PRN (14:55)
[2020-04-25] MEDS ORDERED: ACETAMINOPHEN 325 MG TAB PO PRN ×2 (14:55→16:21)
[2020-04-25] MEDS ORDERED: ALBUTEROL 0.083% NEBU SOLN 3 ML VIAL NEB PRN (14:55)
[2020-04-25] MEDS ORDERED: MIDAZOLAM HCL 1 MG/ML 2ML VIAL ONE (15:40)
[2020-04-25] MEDS ORDERED: fentaNYL citrate 100 MCG/2 ML VIAL ONE (15:40)
[2020-04-25] MEDS ORDERED: NITROGLYCERIN/D5W 100MCG/ML 20ML SYR ONE (15:40)
[2020-04-25] MEDS ORDERED: HEPARIN (PORCINE) 1000 UNIT/ML 10 ML (CATH LAB USE ONLY) ONE (15:42)
--- NOTE | 2020-04-25 16:21 | Cardiac Catheterization ---
Cardiac Cath Procedure Full Procedure Date April 25, 2020 Pre-Procedure Diagnosis Pre-Procedure Diagnosis: Angina and Positive Stress Test AUC Score AUC Score: 7 Post-Procedure Diagnosis Post-Procedure Diagnosis: Normal Coronary Arteries and Normal Intracardiac Pressures Procedure(s) Performed Procedure(s) Performed: Coronary Angiography and Left Heart Cath Cargo Router Herb Shepherd DO Director Of Infection Prevention(s) Iron HILLMAN Estimated Blood Loss Estimated Blood Loss: 5cc Medication(s) Medication(s): Fentanyl, Heparin, Lidocaine 1%, Nitroglycerin and Versed Summary of Findings Normal coronary arteries. Normal left ventricular filling pressures. Right dominant coronary anatomy. The left main is a large vessel which trifurcates into the left anterior descending, ramus intermedius, and left circumflex arteries. The left anterior descending artery is a moderate caliber type II vessel which reaches the left ventricular apex. Gives rise to 1 moderate caliber diagonal branch vessel which traverses the anterior lateral wall reaching the apex. The ramus intermedius is a large vessel perfusing the anterior lateral wall. The left circumflex is a small nondominant vessel which terminates in the posterior lateral wall. The right coronary artery is a large dominant vessel giving rise to posterior descending artery, posterior lateral artery, and acute marginal branch vessels. The coronary arteries are normal without significant obstructive disease. Findings suggest nonischemic cardiomyopathy with an ejection fraction of 45 to 50% per resting 2D transthoracic echocardiogram. Hemodynamics Rest Ao:: 123/56/86 Final Ao: 108/71/89 LV: 124/-5/3 Recommendations Recommendations: Medical Therapy and/or Counseling Specimens Specimens: None Radiation Exposure (mGy) 483 Contrast (mls) 50 Fluids (cc crystalloids) Fluids (cc crystalloids): 25 Drains Drains: n/A Anesthesia Moderate sedation. Start 15:47. End 16:06. Sedation monitor: Lesley HILLMAN Procedural Complication(s) None Disposition PCU I attest to the content of the Intraoperative Record and any orders documented therein. Any exceptions are noted below. ACC Data: Stake Setter Cardiac Status Clinical evaluation leading to the procedure CAD Presenation: Positive Stress Test Anginal Classification: CCS II Heart Failure: No Stress Echocardiogram: Yes - Indeterminant (Rate related bundle branch block, baseline LV systolic function with an estimated ejection fraction of 45%) Coronary Anatomy Dominant: Right Left Main (% Stenosis): Normal LAD (% Stenosis): Normal D1 (% Stenosis): Normal Circumflex (% Stenosis): Normal RCA (% Stenosis): Normal R PDA (% Stenosis): Normal R PL1 (% Stenosis): Normal AM (% Stenosis): Normal Ramus (% Stenosis): Normal Diagnostic Physicians Name: Herb Shepherd DO Status: Elective Closure Device Percutaneous Entry Location: Radial Closure Device: Radial Band Recommendations: Medical Therapy and/or Counseling Intraprocedure Events Significant Disection: No Perforation: No
[2020-04-25] MEDS ORDERED: METOPROLOL SUCC 25MG EXT REL TAB PO SCH (21:00)
--- NOTE | 2020-04-26 06:38 | Electrocardiogram Report ---
Test Reason : Blood Pressure : / mmHG Vent. Rate : 070 BPM Atrial Rate : 070 BPM P-R Int : 138 ms QRS Dur : 088 ms QT Int : 422 ms P-R-T Axes : 029 049 017 degrees QTc Int : 455 ms Normal sinus rhythm Cannot rule out Anterior infarct , age undetermined T wave abnormality, consider anterior ischemia Abnormal ECG When compared with ECG of 28-NOV-2014 18:41, T wave inversion more evident in Anterior leads Confirmed by Nathan Cunningham ([id number]) on 04/26/2020 6:37:30 AM Referred By: Confirmed By:Nathan Cunningham
--- NOTE | 2020-04-26 06:44 | Electrocardiogram Report ---
Test Reason : Blood Pressure : / mmHG Vent. Rate : 070 BPM Atrial Rate : 070 BPM P-R Int : 146 ms QRS Dur : 088 ms QT Int : 446 ms P-R-T Axes : 022 031 004 degrees QTc Int : 481 ms Normal sinus rhythm Cannot rule out Anterior infarct T wave abnormality, consider anterior ischemia Abnormal ECG When compared with ECG of 25-APR-2020 07:26, No significant change Confirmed by Nathan Cunningham ([id number]) on 04/26/2020 6:43:56 AM Referred By: REFERRED SELF Confirmed By:Nathan Cunningham
[2020-04-26 07:50] LABS: Hematocrit (blood only) 40.8 % (37-47); Hemoglobin 14.1 g/dL (12.0-16.0); Mean Corpuscular Hemoglobin 32.3 pg (25-34); Mean Corpuscular Hgb Conc 34.6 g/dL (32-36); Mean Corpuscular Volume 93.4 fL (80-100); Mean Platelet Volume 9.8 fL (7.4-10.4); Platelet Count 282 K/uL (130-400); RDW Coefficient of Variation 13.5 % (11.5-14.5); RDW Standard Deviation 46.2 fL (36.4-46.3); Red Blood Count 4.37 M/uL (4.2-5.4); White Blood Count 8.51 K/uL (4.8-10.8)
[2020-04-26 08:03] LABS: BUN Creatinine Ratio 12.4 (10-20); Calcium 7.8 mg/dl (8.5-10.1); Creatinine Clr Calc Pharmacy 74.8 ml/min; Est GFR (African American) 98.6; Est GFR (Non-African American) 85.1; Potassium 3.8 mmol/L (3.5-5.1)
[2020-04-26 09:42] LABS: Estimated Average Glucose 88 mg/dl; Hemoglobin A1C 4.7 % (4.5-5.6)
--- NOTE | 2020-04-26 09:54 | Post Anesthesia Assessment ---
Date of Service April 26, 2020 Post Sedation Assessment Vital Signs Temp Pulse Resp BP BP Pulse Ox Pulse Ox 04/26/20 07:44 36.7 C 60 18 125/87 100 04/26/20 03:34 36.9 C 84 17 118/74 98 04/26/20 00:00 36.8 C 77 18 105/71 98 04/25/20 19:07 36.8 C 80 18 113/80 98 04/25/20 18:15 99 H 16 134/84 98 04/25/20 17:36 89 16 117/86 97 04/25/20 17:06 81 16 130/91 98 04/25/20 16:36 36.6 C 77 16 111/78 95 04/25/20 16:29 72 16 105/68 98 04/25/20 16:15 74 16 106/73 99 04/25/20 14:55 36.7 C 74 16 130/89 99 99 04/25/20 14:00 75 18 123/76 98 04/25/20 10:30 66 16 149/97 H Recovery Score Activity: Moves 4 extremities Respiration: Deep Breath/Cough Circulation: +/-20% PreAnes Value Consciousness: Fully Awake Oxygen Saturation: > 92% On Room Air Post Anesthesia Score: 10 Discharge Sedation Level of Care: Phase I Post Sedation Plan On clinical assessment, the patient appears to have tolerated the sedation without complications. Patient is recovering as anticipated. Patient will continue to be monitored by nursing and may be discharged when sedation discharge criteria are met per below protocol. Upon Completions of procedure up to 15 minutes continue every 5 minute vital signs and the P.A.R. score; then discharge to a Phase I or Fast Track to Phase II per the following guidelines: * Discharge Patient to appropriate Phase II area if PAR is 8 or greater or return to pre- procedure baseline. The post - procedure orders will be as directed. * If PAR score is less than 8 or not return to pre-procedure baseline then patient will follow Phase I monitoring till PAR is reached for Phase II. The Phase I may be done in procedure room or may call to secure a Phase I area. * If naloxone or flumazenil are used for reversal, hold in Phase I for continued monitoring from when last reversal dose was given for a minimum of 60 minutes or longer pending the nurse and/or physician discretion of patient condition before discharge to Phase II. Please call the Sedation Physician to re-evaluate and complete post-note for discharge to Phase II area. Do NOT discharge from procedure sedation or Phase 1 until post- sedation evaluation note is complete by procedure /sedation MD Sedation Discharge Instructions to be given to the patient at discharge to home.
--- NOTE | 2020-04-26 09:56 | Cardiology Progress Note ---
Date of Service April 26, 2020 Assessment & Plan (1) Chest pain: (2) Abnormal stress echocardiogram: (3) Rate-related bundle branch block: (4) Cardiomyopathy: (5) QT prolongation: Cardiac catheterization reveals normal coronary anatomy. Left ventricular end- diastolic pressure also normal to borderline reduced suggesting euvolemia with borderline hypovolemia. No indication for diuretic therapy. Recommend addition of low-dose lisinopril 2.5 mg daily. Continue metoprolol succinate 25 mg nightly. Repeat basic metabolic panel in 1 week. Post cardiac catheterization activity restrictions listed below. Outpatient cardiology follow-up scheduled 06/09. No further inpatient cardiology testing or intervention at this time. Cardiology will sign off. Please call with questions. ACTIVITY RECOMMENDATIONS: Excess manipulation of the wrist should be avoided for the next 24-48 hours. * No lifting over 2 pounds (approximately a 1/2 gallon of milk) with the utilized arm for 24 hours. * No strenuous activity such as bowling or tennis for 3 days. * Keep the site of the procedure covered with a bandage for 24 hours. *You may shower the day after the procedure. Do not take a tub bath or submerge the puncture site in water for the next 3 days. *Do not operate any motorized equipment for 3 days. SPECIAL CARE INSTRUCTIONS: The site may be slightly bruised and sore following your procedure. Should any of the following occur, contact the Dr. who performed your procedure. 1. Redness/inflammation, swelling, chills, or fever, or colored drainage at procedure site within 3-7 days after your procedure. 2. Coldness, discoloration, ongoing numbness, severe pain, or swelling. Expect mild tingling of hand and tenderness at the puncture site for up to three days. If this persists beyond three days, or other symptoms develop, notify the Dr. who performed your procedure. BLEEDING: If the procedure site on your wrist begins to bleed, do not panic 1. Place 1 or 2 fingers firmly just slightly above the insertion site to stop the bleeding. You may be able to feel your pulse as you hold pressure. 2. Lift your finger after 5 minutes to see if the bleeding has stopped. 3. Once the bleeding has stopped, gently wipe the wrist area clean with a bandage. * If the bleeding from your wrist does not stop after 10 minutes, or if there is a large amount of bleeding or spurting, call 911 ([address] drive yourself to the hospital). SKIN IRRITATION: * You may experience some redness and/or swelling in the area where radiation was administered. If any skin irritation occurs, please contact your family physician. FOLLOW UP VISIT: Keep any scheduled doctor appointments. Subjective Patient seen and examined at the bedside. Notes mild right anterior wrist discomfort. No chest pain or shortness of breath overnight. Telemetry demonstrates sinus rhythm. Offers no concerns/complaints at this time. Review of Systems Review of Systems: All systems reviewed & are unremarkable except as noted in HPI & below Physical Exam Constitutional: well developed, well nourished and + obese; no acute distress and not ill appearing Respiratory: normal respiratory effort, lungs clear to auscultation Auscultation: no crackles, no rales, no rhonchi and no wheezes Cardiovascular: RRR, no murmur, no edema Rate/Rhythm: regular rate and regular rhythm Heart Sounds: normal S1 and normal S2; no gallop, no murmur and no cardiac rub Palpation: normal PMI Vessels: femoral pulses present and radial pulses present; no JVD and no carotid bruit Extremities: no edema Gastrointestinal (Abdomen): Inspection/Auscultation: abdomen normal to inspection and normal bowel sounds; abdomen not distended Percussion/Palpation: abdomen soft; abdomen nontender, no guarding and abdomen not rigid Musculoskeletal: no cyanosis or clubbing, extremities motor strength 5/5 Skin: no rashes, warm and dry Neurologic: moves all extremities; no focal motor deficits Speech / Cognition: normal speech Motor/Sensory: no tremor Psychiatric: A+Ox3, euthymic affect Results & Data Vital Signs (Past 12 Hours) Vital Signs Temp Pulse Resp BP BP Pulse Ox 04/26/20 07:44 36.7 C 60 18 125/87 100 04/26/20 03:34 36.9 C 84 17 118/74 98 04/26/20 00:00 36.8 C 77 18 105/71 98 (1) Chest pain Chest pain type: precordial pain Qualified Code(s): R07.2 - Precordial pain (2) Cardiomyopathy Cardiomyopathy type: unspecified Qualified Code(s): I42.9 - Cardiomyopathy, unspecified
--- NOTE | 2020-04-26 12:40 | Hospitalist Progress Note ---
Date of Service April 26, 2020 Assessment & Plan (1) Chest pain: Admitted with chest pain Serial cardiac enzymes and EKG ruled out any ACS Dobutamine stress echo was equivocal for inducible ischemia He is a status post cardiac cath as of 04/26/2020 which showed normal coronaries She is free from symptoms and will be discharged this afternoon (2) Abnormal stress echocardiogram: Pt is 35 y/o F with PMH cardiomyopathy with EF: 45%, prolonged QTc, chron ic diarrhea, asthma presented to ER with c/o intermittent squeezing sensation to left side of chest that lasts approx 30-40 seconds that began yesterday, worse this morning. As above -Cardiology consult, Dr Shepherd saw pt in ER and performed stress echo -Stress echo: equivocal for inducible ischemia, had below average exercise capacity, incomplete LBBB, lateral and inferior ST depression, dyss ynergistic septal wall motion possibly be related to interventricular dysfunction delay, however ischemic cannot be excluded -Planned to take pt for cardiac cath this afternoon (3) Cardiomyopathy: H/O Cardiomyopathy. Baseline EF: 45% -Continue metoprolol -Cardiology consult, appreciate input and recommendation (4) Asthma: No acute exacerbation Chest clear on examination -Albuterol prn DVT Prophylaxis -SCDs Full Code Follows with Dr Carmen for routine care She will be discharged home this afternoon Admission and Anticipated Discharge Date Admission Date: April 25, 2020 Subjective The patient was seen and examined in telemetry unit She is a 35-year-old female with history of cardiomyopathy with EF of 45%, prolonged QTC and asthma was admitted with chest pain She is a status post cardiac cath today Has been complaining of minimal right-sided chest pain otherwise remains asymptomatic Review of Systems Review of Systems: All systems reviewed and are unremarkable except as noted below Cardiovascular: + chest pain (Occasional chest pain on the right side) Gastrointestinal: no abdominal pain and no bloating Physical Exam Physical Exam: Lying in bed comfortably Constitutional: well developed and well nourished; no acute distress and not ill appearing Eyes: PERRL, conjunctivae normal, anicteric sclerae ENMT: external ear and nose normal, oropharynx normal Neck: trachea midline, no thyromegaly Respiratory: normal respiratory effort; no respiratory distress Auscultation: lungs clear to auscultation bilaterally Cardiovascular: Rate/Rhythm: regular rate and regular rhythm Heart Sounds: no murmur Gastrointestinal (Abdomen): Inspection/Auscultation: abdomen normal to inspection and normal bowel sounds; abdomen not distended Percussion/Palpation: abdomen soft Musculoskeletal: No acute arthritis involving any joints Neurologic: moves all extremities; no focal motor deficits Psychiatric: A+Ox3, euthymic affect Results & Data Results & Data ([facility]) Vital Signs (Past 12 Hours) Vital Signs Temp Pulse Resp BP BP Pulse Ox 04/26/20 12:13 36.8 C 66 18 124/63 97 04/26/20 11:12 36.7 C 60 18 125/87 118/74 100 04/26/20 07:44 36.7 C 60 18 125/87 100 04/26/20 03:34 36.9 C 84 17 118/74 98 Laboratory Results Short CBC 04/26/20 Range/Units 07:09 WBC 8.51 (4.8-10.8) K/uL Hgb 14.1 (12.0-16.0) g/dL Hct 40.8 (37-47) % Plt Count 282 (130-400) K/uL BMP 04/26/20 07:09 Sodium 139 Potassium 3.8 Chloride 109 H Carbon Dioxide 22 BUN 11 Creatinine 0.87 Glucose 97 Calcium 7.8 L Cardiac Enzymes 04/25/20 Range/Units 17:17 Troponin I < 0.015 (0-0.045) ng/ml Medications Administered Current Inpatient Medications Acetaminophen (Tylenol) 650 mg PO Q4H PRN PRN Reason: PAIN 1-3 Stop: 05/25/20 16:20 Albuterol (Ventolin 0.083% 2.5mg/3ml) 2.5 mg NEB Q6R PRN PRN Reason: Shortness Of Breath Or Wheezing Stop: 05/25/20 14:54 Lisinopril (Zestril) 2.5 mg PO QAM JUAREZ Stop: 05/26/20 08:59 Last Admin: 04/26/20 08:54 Dose: 2.5 mg Documented by: Metoprolol Succinate (Toprol Xl) 25 mg PO HS [facility] Stop: 05/25/20 20:59 Last Admin: 04/25/20 19:48 Dose: 25 mg Documented by: Nitroglycerin (Nitrostat) 0.4 mg SL UD PRN PRN Reason: Chest Pain Stop: 05/25/20 14:54 (1) Chest pain Chest pain type: precordial pain Qualified Code(s): R07.2 - Precordial pain (2) Cardiomyopathy Cardiomyopathy type: unspecified Qualified Code(s): I42.9 - Cardiomyopathy, unspecified
--- NOTE | 2020-04-26 22:55 | Electrocardiogram Report ---
Test Reason : Blood Pressure : / mmHG Vent. Rate : 074 BPM Atrial Rate : 074 BPM P-R Int : 148 ms QRS Dur : 086 ms QT Int : 460 ms P-R-T Axes : 054 074 049 degrees QTc Int : 510 ms Normal sinus rhythm Prolonged QT Nonspecific T wave abnormality Abnormal ECG When compared with ECG of 25-APR-2020 11:14, T wave inversion less evident in Anterior leads Confirmed by Nathan Cunningham ([id number]) on 04/26/2020 10:55:44 PM Referred By: REFERRED SELF Confirmed By:Nathan Cunningham
--- NOTE | 2020-04-27 07:46 | Discharge Summary ---
Date of Service April 27, 2020 Admission HPI Per Admitting Provider Pt is 35 y/o F with PMH cardiomyopathy with EF: 45%, prolonged QTc, chronic diarrhea, asthma presented to ER with c/o CP. Pt states yesterday around 4:30PM was sitting on couch when started with intermittent squeezing sensation to left side of chest that lasted approx 30-40 seconds. States this morning woke up around 4:00AM with increased squeezing pain to left chest that was more frequent. Later in morning symptoms associated with SOB, dizziness, nausea without vomiting. Pt reports LEI with CP. Intermittent chest pains have continued and now only with dizziness with sitting up or standing. Chronic intermittent loose stools, last BM yesterday was loose. Ate breakfast around 5:00AM today. Denies fever/chills, syncope, vision changes, neck pain, orthopnea, palpitations, cough, sore throat, choking, otalgia, rhinorrhea, abdominal pain, paresthesias, weakness, extremity weakness, extremity edema, rashes, urinary symptoms, recent travel, ill contacts. H/O Stress test in 12/2019 was equivocal for inducible ischemia. In ER initial EKG without acute ST elevation, negative troponin x 2, negative D- Dimer. Dr Shepherd performed stress test with reported septal wall motion abnormality and cardiac cath is recommended. Pt to be admitted for further workup and observation. Admission Exam Per Admitting Provider Physical Exam: General: no distress, WDWN Head: normocephalic, atraumatic Eyes: PERRL, EOM's intact, conjunctiva non-injected, anicteric ENT: normal inspection external ears, nose, mucous membranes moist Neck: supple, trachea midline Lungs: clear, no respiratory distress, no wheezing/rhonchi/rales CV: RRR, no murmur, no pretibial edema Abd: normal BS, protuberant, soft, non-tender Ext: no cyanosis, no calf tenderness Neuro: A&O x 3, no focal deficits noted, normal affect Skin: warm, dry Principal Diagnosis Chest pain-ACS ruled out, status post cardiac cath with normal coronaries, cardiomyopathy with EF of 45% Discharge Exam Constitutional well developed and well nourished; no acute distress and not ill appearing Eyes PERRL, conjunctivae normal, anicteric sclerae ENMT external ear and nose normal, oropharynx normal Neck trachea midline, no thyromegaly Respiratory normal respiratory effort; no respiratory distress Auscultation: lungs clear to auscultation bilaterally Cardiovascular Rate/Rhythm: regular rate and regular rhythm Heart Sounds: no murmur Gastrointestinal (Abdomen) Inspection/Auscultation: abdomen normal to inspection and normal bowel sounds; abdomen not distended Percussion/Palpation: abdomen soft Neurologic moves all extremities; no focal motor deficits Psychiatric A+Ox3, euthymic affect Discharge Data Allergies Allergy/AdvReac Type Severity Reaction Status Date / Time verapamil Allergy Mild Swelling Verified 04/25/20 07:56 and rash Consultations 04/25/20 12:57 ED Decision to Admit Stat 04/25/20 12:58 Consult Cardiac Catheterization Stat 04/25/20 14:48 Consult Cardiology Routine Procedures Performed Operation Date: 04/25/20 13:30 Actual Procedures p Cath, Left with Cors and Vent - Herb Shepherd DO s Cineradiography w/Routine Exam - Herb Shepherd DO Ordered Studies 04/25/20 15:28 CL Cath Imgs for PACS use only Routine Hospital Course (1) Chest pain: Admitted with chest pain Serial cardiac enzymes and EKG ruled out any ACS Dobutamine stress echo was equivocal for inducible ischemia He is a status post cardiac cath as of 04/26/2020 which showed normal coronaries She is free from symptoms and will be discharged this afternoon (2) Abnormal stress echocardiogram: Pt is 35 y/o F with PMH cardiomyopathy with EF: 45%, prolonged QTc, chronic diarrhea, asthma presented to ER with c/o intermittent squeezing sensation to left side of chest that lasts approx 30-40 seconds that began yesterday, worse this morning. As above -Cardiology consult, Dr Shepherd saw pt in ER and performed stress echo -Stress echo: equivocal for inducible ischemia, had below average exercise capacity, incomplete LBBB, lateral and inferior ST depression, dyssynergistic septal wall motion possibly be related to interventricular dysfunction delay, however ischemic cannot be excluded -Planned to take pt for cardiac cath this afternoon (3) Cardiomyopathy: H/O Cardiomyopathy. Baseline EF: 45% -Continue metoprolol -Cardiology consult, appreciate input and recommendation (4) Asthma: No acute exacerbation Chest clear on examination -Albuterol prn DVT Prophylaxis -SCDs Full Code Follows with Dr Carmen for routine care She will be discharged home this afternoon Total Time Total Time Spent Total Time Spent (In Minutes): 35 minutes Total Time Includes: Examination of the Patient, Discharge Planning, Medication Reconciliation and Communication With Other Providers Discharge Plan Discharge Items Patient Disposition: Home - Self-Care Reason For Visit: CP Discharge Diagnosis: Chest pain-ACS ruled out, status post cardiac cath with normal coronaries, cardiomyopathy with EF of 45% Condition on Discharge: Good Activity: As commented below Non-emergency contact: Primary Care Provider Call non-emergency contact if: you have any medication questions and your symptoms worsen Follow-up/Referrals: Kae Carmen DO [Primary Care Provider] - 05/03/20 11:00 am (05/03/2020 11:00 AM Provider Kae Carmen DO [facility] You have a cardiology outpatient appointment on 06/09 ) Diet: Heart Healthy Ambulatory Orders: Basic Metabolic Panel (Routine) Timeframe: 1 Week Location: Determined by Patient Ordered By: Bob Acevedo Attending Provider Instructions: Please take it easy for the next few days Please ask your PCP to have a basic metabolic panel done and reported to Dr. Charles,the black top roller Take your cardiac medications as advised Kristina [employer] Provider Instructions: ACTIVITY RECOMMENDATIONS: Excess manipulation of the wrist should be avoided for the next 24-48 hours. * No lifting over 2 pounds (approximately a 1/2 gallon of milk) with the utiliz ed arm for 24 hours. * No strenuous activity such as bowling or tennis for 3 days. * Keep the site of the procedure covered with a bandage for 24 hours. *You may shower the day after the procedure. Do not take a tub bath or submerge the puncture site in water for the next 3 days. *Do not operate any motorized equipment for 3 days. SPECIAL CARE INSTRUCTIONS: The site may be slightly bruised and sore following your procedure. Should any of the following occur, contact the DrOly who performed your procedure. 1. Redness/inflammation, swelling, chills, or fever, or colored drainage at proc edure site within 3-7 days after your procedure. 2. Coldness, discoloration, ongoing numbness, severe pain, or swelling. Expect mild tingling of hand and tenderness at the puncture site for up to three days. If this persists beyond three days, or other symptoms develop, notify the Dr. who performed your procedure. BLEEDING: If the procedure site on your wrist begins to bleed, do not panic 1. Place 1 or 2 fingers firmly just slightly above the insertion site to stop the bleeding. You may be able to feel your pulse as you hold pressure. 2. Lift your finger after 5 minutes to see if the bleeding has stopped. 3. Once the bleeding has stopped, gently wipe the wrist area clean with a bandage. * If the bleeding from your wrist does not stop after 10 minutes, or if there is a large amount of bleeding or spurting, call 911 (do not drive yourself to the hospital). SKIN IRRITATION: * You may experience some redness and/or swelling in the area where radiation was administered. If any skin irritation occurs, please contact your family physician. Pending Studies at Discharge: No Stand-Alone Forms: My [facility], Smoking Cessation Medications and DC Order Prescriptions: New nitroglycerin [Nitrostat] 0.4 mg Tablet, Sublingual 0.4 mg sublingual UD PRN (Reason: chest pain) 30 Days Qty: 30 RF: 0 lisinopril 2.5 mg Tablet 2.5 mg PO QAM 30 Days Qty: 30 RF: 0 Continued metoprolol succinate 25 mg tablet extended release 24 hr 25 mg PO HS RF: 0 albuterol sulfate 90 mcg/actuation Hfa Aerosol Inhaler 2 puff INHALATION Q6H PRN (Reason: Shortness Of Breath Or Wheezing) RF: 0 dicyclomine 10 mg capsule 10 mg PO TID PRN (Reason: Abdominal Discomfort) RF: 0 Discharge Orders: Discharge Order (Routine); Ordered 04/26/20 Ordered By: Bob Kumar Admission Data Admit Date/Time: 04/25/20 13:08 Attending Provider: Bob Kumar Admit Provider: Palak Damon Primary Care Provider: Kae Carmen Other Providers: Herb Shepherd Sabrina M. Other Interventions: Discharge Summary Assessment (RN) Last Done: 04/26/20 11:12 DC Date/Time DO NOT enter until pt leaves facility: 04/26/20 14:00
== END 2020-04-26 14:00 | disposition home or self-care (01) | DRG 287 ==
LOC: ED 07:14 → 2S 13:08 → SUATTDRO 13:08 → 2S 14:10